=== PATIENT | male | born 1945 | race Caucasian/White ===

== ENCOUNTER 2016-08-19 18:18 | Emergency (ER) | payer OTHER, MEDICARE ==
--- NOTE | 2016-08-22 04:09 | ER ---
ADMIT: 08/19/2016 RM/LOC: ER [facility] MR#: [id number] [address] [address] NICHOLE JULIO Stevens [address] [place] [address] Emergency Room Report SEX: M AGE: 71 : 1945 DATE: 08/19/2016 ADDENDUM: Please see my T-sheet for complete review of systems, past medical history, and physical exam. CHIEF COMPLAINT: Fall, injury to nose. HISTORY OF PRESENT ILLNESS: This is a pleasant 71-year-old, white male, who presents to the ER following a fall sustained just prior to arrival. 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 He complains of nasal pain and some left knee pain. Denies any blood thinners. PAST MEDICAL HISTORY: Significant for hypertension, diabetes, on metformin and lisinopril. Denies any loss of consciousness, neck pain, headache, problems with vision, numbness, weakness in extremities, shortness of breath, nausea or vomiting. COURSE IN THE EMERGENCY ROOM: The patient was seen and examined. Does have a small laceration to the bridge of the nose with associated abrasion on the left side of the face. Does have significant swelling about the nasal bridge. Pupils are equal and reactive. Extraocular muscle testing is intact. Cranial nerves are normal. Sensation and motor are equal in the upper and lower extremities compared bilaterally. Chest is nontender. Breath sounds normal bilaterally. Did proceed with a CT of the head. No evidence of any acute bleed. Did note nasal bone fracture. I also did repair the small laceration with some Dermabond while in the department. He also does have subluxation of tooth #9. It remains well implanted. Does have some anterior and posterior translation. ADMIT: 08/19/2016 RM/LOC: [facility] MR#: [id number] [facility] [address] [address] NICHOLE JULIO Stevens [address] [place] [address] Emergency Room Report SEX: M AGE: 71 : 1945 IMPRESSION: 1. Nasal bone fracture. 2. Laceration to bridge of nose. 3. Left knee abrasion. 4. Tooth #9 subluxation. DISPOSITION: The patient is to keep the wound to his nose clean and dry. He can certainly shower, allow the glue to fall off on its own. Continue his home medications. Return with any worsening signs or symptoms or follow up with someone in Family Practice. Tylenol or Motrin as needed for pain. Apply ice as needed to the nose for swelling. He is to follow up with his dentist regarding the loose tooth. SALLY Sharma / Huey Conway MD / tracie JOB #: [id number] CC: Jorge Kimball MD, Attending Physician
== END 2016-08-19 19:40 | disposition home or self-care (01) ==
LOC: ER 18:18
PROC: 0HQ1XZZ Repair Face Skin, External Approach (ICD-10-PCS; principal; 2016-08-19)
DX: S02.2XXA Fracture of nasal bones, initial encounter for closed fracture (principal); S01.21XA Laceration without foreign body of nose, initial encounter; S03.2XXA Dislocation of tooth, initial encounter; S80.212A Abrasion, left knee, initial encounter; I10 Essential (primary) hypertension; E11.9 Type 2 diabetes mellitus without complications; Z79.84 Long term (current) use of oral hypoglycemic drugs; W20.8XXA Other cause of strike by thrown, projected or falling object, initial encounter